=== PATIENT | male | born 1995 | race Two or more races ===

== ENCOUNTER 2019-08-03 23:28 | Emergency (ER) | payer OTHER ==
[~2019-08-03] VITALS: Ht 180.3 cm; Wt 113.4 kg
[2019-08-03 23:28] VITALS: BP 132/78
--- NOTE | 2019-08-03 23:28 | NUR ---
ED Nurse Note: Patient brought in by RA and [employer] due to right palm laceration S/P fall. No active bleeding noted. Dried blood was noted. No stated medical history. Alert and oriented, verbally responsive. No SOB. Breathing even and unlabored. Afebrile. VSS. Pt is under custody.
--- NOTE | 2019-08-03 23:50 | Emergency Room Report ---
History of Present Illness General Chief Complaint: Medical Clearance Source: Patient Present Illness HPI This is a 24-year-old male [id number]. He was brought in by police for medical clearance and he has chief complaint of laceration to his right hand. He said he fell when he was running away. There were glass on the ground he sustained a laceration to his palm. There is bleeding. No other injury. Minimal pain. Tetanus not up-to-date. Allergies: Coded Allergies: No Known Allergies (Unverified , 08/03/19) Patient History Past Medical History: see triage record, old chart reviewed Past Surgical History: none Pertinent Family History: none Social History: Reports: smoking Immunizations: other Reviewed Nursing Documentation: PMH: Agreed; PSxH: Agreed Nursing Documentation-PMH Past Medical History: No Stated History Review of Systems Eye: Denies: eye pain, blurred vision ENT: Denies: ear pain, nose congestion, throat swelling Respiratory: Denies: cough, shortness of breath Cardiovascular: Denies: chest pain, palpitations Gastrointestinal: Denies: abdominal pain, diarrhea, nausea, vomiting Musculoskeletal: Denies: back pain, joint pain Skin: Denies: rash Neurological: Denies: headache, numbness Endocrine: Denies: increased thirst, increased urine Hematologic/Lymphatic: Denies: easy bruising All Other Systems: negative except mentioned in HPI Physical Exam Vital Signs Date Time Temp Pulse Resp B/P (MAP) Pulse Ox O2 Delivery O2 Flow Rate FiO2 08/03/19 23:24 98.8 72 16 132/78 (96) 99 Room Air Vitals normal Sp02 EP Interpretation: reviewed, normal General Appearance: well appearing, no apparent distress, alert Head: normocephalic, atraumatic Eyes: bilateral eye PERRL, bilateral eye EOMI ENT: hearing grossly normal, normal pharynx Neck: full range of motion, supple, no meningismus Respiratory: chest non-tender, lungs clear, normal breath sounds Cardiovascular #1: regular rate, rhythm, no murmur Gastrointestinal: normal bowel sounds, non tender, no mass, no organomegaly, no bruit, non-distended Musculoskeletal: back normal, gait/station normal, normal range of motion, other - Right hand with 2 cm laceration to the palm. No foreign body. No tendon laceration. Psychiatric: mood/affect normal Medical Decision Making Diagnostic Impression: Primary Impression: Laceration of right hand Qualified Codes: S61.411A - Laceration without foreign body of right hand, initial encounter ER Course Patient presents with a right hand laceration. Not too deep but would benefit from suturing. He refused. It was dressed with a Band-Aid. Will discharge to police. No foreign body or tendon laceration. Last Vital Signs Date Time Temp Pulse Resp B/P (MAP) Pulse Ox O2 Delivery O2 Flow Rate FiO2 08/03/19 23:28 72 16 Room Air 08/03/19 23:28 98.8 132/78 99 Status: improved Disposition: D/C TO LAW ENFORCEMENT IN [facility] Condition: Stable Additional Instructions: Follow up with your doctor in 7 days. Return if symptoms worsen. Deven Lee MD Aug 03, 2019 23:50
[2019-08-04] MEDS ORDERED: Tetanus/Diptheria/Pertussis IM ONE
[2019-08-04] MEDS ORDERED: Neosporin Oint Ud Pkt TOPIC ONE ×2 (00:04→00:15)
[2019-08-04 00:15] VITALS: BP 132/78
--- NOTE | 2019-08-04 00:15 | NUR ---
ED Nurse Note: Pt cleared by ERMD for discharge. DC instructions was given and explained to pt and verbalized understanding of teachings. All medical deviecs such as ID band removed. Pt is AAO x4, ambulatory and left with all personal belongings. Accompanied by [employer]. Pt is under custody.
== END 2019-08-04 00:15 ==
LOC: EDBD 23:28 → EMR 23:59
DX: S61.411A Laceration without foreign body of right hand, initial encounter (principal); F17.200 Nicotine dependence, unspecified, uncomplicated; Z23 Encounter for immunization; W01.110A Fall on same level from slipping, tripping and stumbling with subsequent striking against sharp glass, initial encounter; Y93.02 Activity, running; Y92.9 Unspecified place or not applicable
CPT/HCPCS: 90471; 90715; 99282